=== PATIENT | male | born 1990 | race Caucasian/White ===

== ENCOUNTER 2021-01-24 18:55 | Emergency (ER) | payer OTHER, SELFPAY ==
[2021-01-24 18:55] VITALS: BP 142/95; PULSE 81; RESP 20; TEMP 36.7; O2SAT 98; BMI 22.6
[2021-01-24 19:52] LABS: UTC Strep Screen (Rapid) Negative (Negative)
--- NOTE | 2021-01-24 20:05 | HMH.EDUTC ---
[facility] [place] Disposition Clinical Impression: Pharyngitis Qualifiers: Pharyngitis/tonsillitis etiology: unspecified etiology Qualified Code(s): J02.9 - Acute pharyngitis, unspecified Disposition: Home, Self-Care Condition on Discharge: Good Instructions: Sore Throat, DI for Pharyngitis/Tonsillopharyngitis -- Adult Additional Instructions: Take the medication as directed. Follow up with your primary care doctor. Drink plenty of fluids. GO TO THE ER FOR ANY WORSENING SYMPTOMS OR CONCERNS Prescriptions: predniSONE [Prednisone 20mg Tab] 20 mg PO BID 4 Days #8 tab Transmission Status: Received by [id number] Azithromycin [Z-Scott 250mg Tab*] 250 mg PO UD DOSE PK #6 tab Transmission Status: Received by [id number] Referrals: Provider,Referral, MD [Primary Care Provider] - Forms: Work/School Release Time of Disposition: 20:07 Medical Decision Making - Medical Records Medical records reviewed: No: I reviewed the patient's medical records. - Andrea Inquiry Pt receiving controlled substance: No Vital Signs: 01/24/21 18:55 01/24/21 20:08 Temperature 98.0 F 98.0 F Temperature Source Oral Pulse Rate 81 Pulse Rate [Right Brachial] 81 Respiratory Rate 20 20 Blood Pressure 142/95 H Blood Pressure [Right Arm] 142/95 H Blood Pressure Mean [Right Arm] 110 Blood Pressure Source [Right Arm] Automatic Cuff Blood Pressure Position [Right Arm] Sitting 02 Sat by Pulse Oximetry 98 Oxygen Delivery Method Room Air - Lab Data Lab results reviewed: Yes: I reviewed the patient's lab results. Lab Results 01/24/21 19:49: Strep [facility] Negative Orders (Tests/Meds): ORDERS Category Date Time Status Strep Screen Confirmation Stat Micro 01/24/21 19:49 Received [facility] [place] HPI - General Stated complaint: possible hand foot and mouth Time Seen by Provider: 01/24/21 19:00 Mode of Arrival: Ambulatory Source of Information: Patient Limitations: No Limitations Description of Symptoms (Recalled from Triage Doc. by RN): PATIENT C/O FEVER YESTERDAY AND STATES THE TIPS OF HIS FINGERS AND TOES FEEL RAW . RECENTLY EXPOSED TO SOMEONE WITH HAND/FOOT/MOUTH HEENT Symptoms (Recalled from RN notes): No Resp Symptoms (Recalled from RN notes): No Skin Symptoms (Recalled from RN notes): Yes MS Symptoms (Recalled from RN notes): No Functional Status (Recalled from RN notes): WNL - History of Present Illness Provider Complaint: He c/o sore throat since yesterday. He denies fever and chills. He thinks that he might have been exposed to hand foot and mouth disease. He denies any skin rash. - Related Data Previous Rx's Medication Instructions Recorded Azithromycin [Z-Scott 250mg Tab*] 250 mg PO UD DOSE PK #6 tab 01/24/21 predniSONE [Prednisone 20mg 20 mg PO BID 4 Days #8 tab 01/24/21 Tab] Allergies Allergy/AdvReac Type Severity Reaction Status Date / Time No Known Allergies Allergy Verified 01/24/21 19:19 - Worker's Comp Is this a Worker's Comp case?: No [facility] History - Hepatitis A Screen Drug use history?: No High risk sexual behaviors?: No History of sexually transmitted infection?: No Currently employed?: No Childcare worker?: No Do you have indoor plumbing?: Yes Do you have electricity?: Yes Attestation statement:: This patient has been screened for Hepatitis A risk factors. I have reviewed the patient's past medical history: Yes - Social History Alcohol Intake: never Occupational Status: other ROS Obtained: Yes All systems reviewed & no additional complaints - Constitutional Constitutional: Reports as per HPI, Reports fatigue, Reports fever(s), Reports poor appetite, Reports malaise - Eyes Eyes: Denies eye discharge - ENT Ears, Nose, Mouth, and Throat: Reports as per HPI - Cardiovascular Cardiovascular: Denies chest pain - Respiratory Respiratory: Reports chest congestion, Reports cough, Denies dyspnea, Denies stridor, Denies wheezing P
[2021-01-24 20:08] VITALS: BP 142/95; PULSE 81; RESP 20; TEMP 36.7; O2SAT 98
== END 2021-01-24 20:13 | disposition home or self-care (01) ==
PROVIDERS: Emergency Provider Nurse Practitioner Family
DX: J02.9 Acute pharyngitis, unspecified (principal); R53.1 Weakness
CPT/HCPCS: 87880; 99202; G0463

== ENCOUNTER → 2022-08-14 13:18 | Outpatient (CLI) | payer OTHER, SELFPAY | PROVIDERS: PCP Family Medicine; Visit Provider Family Medicine | DX: R35.0 Frequency of micturition (principal) | CPT/HCPCS: 87086 ==

== ENCOUNTER → 2022-09-03 11:00 | Outpatient (CLI) | payer OTHER, SELFPAY ==
[2022-09-03 18:32] LABS: Barbiturates Screen,Urine Negative ng/ml (<200)
[2022-09-03 18:33] LABS: Amphetamine/Metha Screen,Urine Negative ng/ml (<1000); Benzodiazepines Screen,Urine Negative ng/ml (<200)
[2022-09-03 18:34] LABS: Cannabinoid Screen,Urine Positive ng/ml (<50)
[2022-09-03 18:35] LABS: Cocaine Screen,Urine Negative ng/ml (<300); Methadone Screen,Urine Negative ng/ml (<300)
[2022-09-03 18:36] LABS: Opiate Screen,Urine Negative ng/ml (<300)
[2022-09-03 18:37] LABS: Phencyclidine Screen,Urine Negative ng/ml (<25)
== END ==
PROVIDERS: PCP Nurse Practitioner Family; Visit Provider Nurse Practitioner Family
DX: N39.0 Urinary tract infection, site not specified (principal); A49.9 Bacterial infection, unspecified; Z79.899 Other long term (current) drug therapy
CPT/HCPCS: 80305; 87086